=== PATIENT | female | born 1965 | race Caucasian/White ===

== ENCOUNTER 2018-05-19 11:55 | Emergency (ER) | payer OTHER ==
[~2018-05-19] VITALS: Ht 154.9 cm; Wt 72.7 kg
[~2018-05-19 11:55] MED LIST: NOCURR
[2018-05-19] MEDS ORDERED: IBUPROFEN 800 MG TABLET PO ONE (12:45)
[2018-05-19 13:26] VITALS: BP 135/76
== END 2018-05-19 13:34 | disposition home or self-care (01) ==
LOC: EMS 11:56
DX: H60.91 Unspecified otitis externa, right ear (principal); Z90.710 Acquired absence of both cervix and uterus; Z98.890 Other specified postprocedural states
CPT/HCPCS: 99283

== ENCOUNTER 2020-02-18 16:19 | Emergency (ER) | payer OTHER ==
[~2020-02-18] VITALS: Ht 154.9 cm; Wt 76.4 kg
[2020-02-18 16:28] VITALS: BP 118/79
== END 2020-02-18 17:22 | disposition home or self-care (01) ==
LOC: EMS 16:19
DX: B34.9 Viral infection, unspecified (principal); Z20.828 Contact with and (suspected) exposure to other viral communicable diseases
CPT/HCPCS: 99283; U0003

== ENCOUNTER 2020-08-27 09:25 | Emergency (ER) | payer OTHER ==
[~2020-08-27] VITALS: Ht 154.9 cm; Wt 77.3 kg
[2020-08-27] MEDS ORDERED: HYDROCODONE/ACETAMINOPHEN 5-325 MG TABLET PO ONE (10:45)
[2020-08-27] MEDS ORDERED: SODIUM CHLORIDE 0.9% 100 ML ONE (11:07)
[2020-08-27] MEDS ORDERED: IOVERSOL 350 MG/ML 100 ML VIAL ONE (11:08)
[2020-08-27 11:09] LABS: BASOPHILS % (AUTO) 0.3 % (0.0-2.0); EOSINOPHILS % (AUTO) 0.1 % (1.0-6.0); HEMATOCRIT 42.1 % (36-46); HEMOGLOBIN 13.9 g/dL (12.0-16.0); LYMPHOCYTES % (AUTO) 21.9 % (22.0-44.0); MEAN CORPUSCULAR HEMOGLOBIN 29.1 pg (26.0-34.0); MEAN CORPUSCULAR VOLUME 88 fL (80-100); MONOCYTES # (AUTO) 0.3 K/uL (0.1-1.0); MONOCYTES % (AUTO) 7.4 % (2.0-9.0); NEUTROPHILS # (AUTO) 3.2 K/uL (1.8-7.7); NEUTROPHILS % (AUTO) 70.3 % (40.0-70.0); PLATELET COUNT (AUTO) 219 K/uL (150-450); RED BLOOD CELL COUNT(AUTO) 4.77 MIL/uL (4.00-5.20); RED CELL DISTRIBUTION WIDTH 13.4 % (11.5-14.5)
[2020-08-27 11:22] LABS: ANION GAP 10 mmol/L (8-16); CALCIUM, TOTAL 9.3 mg/dL (8.8-10.5); CARBON DIOXIDE 26 mmol/L (22-29); CHLORIDE 106 mmol/L (98-107); CREATININE 0.77 mg/dL (0.60-1.30); GLOMERULAR FILTR. RATE CALC > 60 mL/min (>60); GLUCOSE,RANDOM 102 mg/dL (70-110); POTASSIUM 3.8 mmol/L (3.5-5.1); SODIUM SERUM 142 mmol/L (136-145); UREA NITROGEN, BLOOD 9 mg/dL (7-18)
[2020-08-27 11:27] LABS: ALANINE AMINOTRANSFERASE 41 U/L (12-78); ALBUMIN 3.4 g/dL (3.4-5.0); ALKALINE PHOSPHATASE 111 U/L (46-116); ASPARTATE AMINOTRANSFERASE 21 U/L (15-37); BILIRUBIN,TOTAL 0.3 mg/dL (0.1-1.0); TOTAL PROTEIN, SERUM 7.5 g/dL (6.4-8.2)
[2020-08-27 14:54] VITALS: BP 116/75
== END 2020-08-27 15:03 | disposition home or self-care (01) ==
LOC: EMS 09:28
DX: K05.219 Aggressive periodontitis, localized, unspecified severity (principal)
CPT/HCPCS: 36415; 70487; 70491; 80053; 85025; 99285; J7050; Q9967

== ENCOUNTER 2022-02-06 00:09 | Emergency (ER) | payer OTHER ==
[~2022-02-06] VITALS: Ht 157.5 cm; Wt 85.0 kg
[2022-02-06 00:15] VITALS: BP 149/75
[2022-02-06] MEDS ORDERED: IBUPROFEN 600 MG TABLET PO ONE (01:15)
[2022-02-06] MEDS ORDERED: LIDOCAINE 1% 10 ML VIAL SQ ONE (01:15)
[2022-02-06] MEDS ORDERED: BACITRACIN 0.9 GM PACKET OINTMENT TP ONE (01:15)
[2022-02-06] MEDS ORDERED: DOXYCYCLINE HYCLATE 100 MG TABLET PO ONE (01:45)
[2022-02-06] MEDS ORDERED: DOXY-354 PO (01:48)
== END 2022-02-06 02:06 | disposition home or self-care (01) ==
LOC: EMS 00:13
DX: L03.032 Cellulitis of left toe (principal); Z90.710 Acquired absence of both cervix and uterus; Z98.890 Other specified postprocedural states
CPT/HCPCS: 10060; 99283; J3490

== ENCOUNTER 2022-03-21 22:39 | Emergency (ER) | payer OTHER ==
[~2022-03-21] VITALS: Ht 160 cm; Wt 63.2 kg
[~2022-03-21 22:39] MED LIST changes: +DOXY-354 PO; -NOCURR
[2022-03-22 01:23] LABS: COVID AG,FIA SOURCE NASAL SWAB
[2022-03-22 02:01] LABS: INFLUENZA TYPE A NEGATIVE FOR TYPE A (NEGATIVE); INFLUENZA TYPE B NEGATIVE FOR TYPE B (NEGATIVE)
[2022-03-22 03:30] VITALS: BP 132/81
== END 2022-03-22 03:54 | disposition home or self-care (01) ==
LOC: EMS 22:39
DX: R05.9 Cough, unspecified (principal); M54.9 Dorsalgia, unspecified; R30.0 Dysuria; Z20.822 Contact with and (suspected) exposure to COVID-19; Z98.890 Other specified postprocedural states; Z90.710 Acquired absence of both cervix and uterus
CPT/HCPCS: 71045; 87804; 99284

== ENCOUNTER 2022-12-17 22:15 | Emergency (ER) | payer OTHER ==
[~2022-12-17] VITALS: Ht 154.9 cm; Wt 84.1 kg
[2022-12-17] MEDS ORDERED: ACETAMINOPHEN 500 MG TABLET PO ONE (23:15)
[2022-12-18 01:05] VITALS: BP 132/68
== END 2022-12-18 01:05 | disposition home or self-care (01) ==
LOC: EMS 22:15
DX: S63.502A Unspecified sprain of left wrist, initial encounter (principal); M25.512 Pain in left shoulder; Z98.890 Other specified postprocedural states; Z90.710 Acquired absence of both cervix and uterus; W18.30XA Fall on same level, unspecified, initial encounter; Y93.89 Activity, other specified; Y92.89 Other specified places as the place of occurrence of the external cause; Y99.8 Other external cause status
CPT/HCPCS: 99284; 73030-TC; 73110-TC; Z7502; Z7610